=== PATIENT | female | born 1950 | race Caucasian/White ===

== ENCOUNTER 2025-01-24 09:00 | Outpatient (REF) | payer MEDICARE, SELFPAY ==
--- NOTE | ~2025-01-24 | MR_ITS ---
EXAM: TECHNIQUE: Multiplanar - multisequence imaging through an upper extremity, right hand , was performed without and with IV contrast. IV contrast: 7.5 mL Gadavist INDICATION: Painless mass or swelling of the wrist for a couple months , prior history of ganglion that was surgically provided, partially amputated thumb 4 years ago PRIOR: None FINDINGS: Ligaments: Collateral ligaments appear intact. Muscles, tendons, pulleys: There is fluid encircling the flexor tendons through the carpal tunnel with mild thickening and hyperenhancement of the synovium. Hyperenhancement of the synovium continues along the flexor tendons of the fifth digit and through the thenar region of the flexor tendon of the thumb. There is a multiloculated fluid collection involving the thumb. Fluid collection tracks along the lateral/radial side of flexor tendon and proximal phalanx. At the level of the IP joint, fluid encircles the flexor pollicis longus tendon with the tendon is severely attenuated. There is peripheral hyperenhancement collection that measures 2.4 x 1.0 x 0.6 cm (CC by transverse by AP). There is also a loculated collection with thick peripheral enhancement on the palmar side of the distal phalanx measuring 7 mm diameter. The lesion is isointense slightly hyperintense to skeletal muscle T1 imaging, intermediate signal on fluid sensitive sequences, and demonstrates thick peripheral enhancement. Muscles demonstrate no edema, or mass effect, or fatty changes. Articular cartilage: There is moderate to severe thinning of articular cartilage and IP joint of thumb with large marginal osteophytes. There is trace joint effusion of the first MCP joint Bones/Marrow: There is no marrow edema or marrow replacing lesions. MR/MR hand RT wo/w con IMPRESSION: There is evidence of a tenosynovitis involving the flexor tendons in the carpal tunnel with extension into the first and fifth rays. This could be related to an inflammatory arthropathy such as rheumatoid arthritis, but could be posttraumatic or related to overuse. Infection is less likely given the 4 month duration without aggressive features such as extension through fascial planes or erosions. There is likely formation of a synovial cyst in the thumb, as described above. The most distal lesion in the thumb demonstrates nodular thickening but is still likely synovial in nature. 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 Electronically signed by: Rd Duarte MD 01/24/2025 12:21 PM EDT RP
--- OUTSIDE RECORDS SUMMARY | 2025-01-24 09:42 | XMS_ITS | Encounter Summary ---
Author Organization [facility] Address [address] [facility] [address] [place] [address] Phone Care Team Providers Care Acoustical Installer Name Role Phone Lisa Loco DO Primary Care Provider [phone] Sky Barrett MD Primary Care Provider [phone]- [phone] Trent Salazar MD Unavailable [phone] Encounter Details Date Type Department Care Team (Late st Contact Info) Description 06/14/2018 Prep for Surgery [facility] Orthopedics & Sports Medicine [address] [place] [address] Lorena Denis MD [address] [place] [address] Orthopedics & Sports Medicine, [facility] [address] [email or web address] Social History Tobacco Use Types Packs/Day Years Used Date Smoking Tobacco: Former Cigarettes Q uit: 1979 Smokeless Tobacco: Never Alcohol Use Standard Drinks/Week Comments Yes 0 (1 standard drink = 0.6 oz pur e alcohol) rare Comments No Sex and Gender Information Value Date Recorded Sex Assigned at Female 04/03/2017 9:38 AM EST Legal Sex Female 10:00 PM EDT Gender Identity Female 04/03/2017 9:38 AM EST Sexual Orientation Straight 04/03/2017 9: 38 AM EST documented as of this encounter Plan of Treatment Upcoming Encounters Date Type Department Care Team (Late st Contact Info) Description 01/07/2025 Procedure Pass [address] [address] 01/28/2025 8:30 AM EST Office Visit [facility] Orthopedics & Sports [address] [address] Lorena Denis MD [address] [place] [address] Orthopedics Sports [facility], [place], [place] [id number] 02/12/2025 6:10 PM EST Appointment [facility] [address] [place] [address] Haley Castellanos PA-C [address] [place] [address] [place] [address] 03/13/2025 10:15 AM EST Office Visit [facility] Orthopedics & Sports [address] [address] Lorena Denis MD [address] [place], [place] [address] [place], [place] [phone] [email or web address] documented as of this encounter Visit Diagnoses Not on filedocumented in this encounter Care Teams Acoustical Installer Relationship Specialty Start Date End Date Lisa Loco DO [address] [place] [address] [email or web address] PCP - General 03/30/18 07/30/20 Sky Barrett MD [address] [place] [address], [address] [place] [address] PCP - General Internal Medicine 07/31/20 Trent Salazar MD [address] [place] [address] ([email or web address]) [email or web address] Gastroenterology 07/19/22 documented as of this encounter Additional Source Comments The information contained in this document represents components of the legal health record. It is not the complete legal health record.[facility]
--- OUTSIDE RECORDS SUMMARY | 2025-01-24 09:42 | XMS_ITS | Clinical Summary ---
Author Organization [facility] Address [address] [place] [address] Care Team Providers Care Business Process Associate Name Role Phone Lisa Loco DO Primary Care Provider [phone] Allergies No known active allergies Medications acetaminophen (TYLENOL) 325 mg tablet Take 1 tablet (325 mg total) by mouth every 6 hours. 02/04/2020 Active aspirin 81 mg EC tablet Take 1 tablet (81 mg total) by mouth daily. 30 tablet 02/04/2020 Active docusate sodium (COLACE) 100 mg capsule Take 1 capsule (100 mg total) by mouth 2 times a day. 02/04/2020 Active oxyCODONE IR (ROXICODONE) 5 mg tablet Take 1 tablet (5 mg total) by mouth every 3 hours as needed for pain. Max Daily Amount: 40 mg 12 tablet 02/04/2020 Active polyethylene glycol 3350 (MIRALAX) 17 gram packet Take 1 packet (17 g total) by mouth daily as needed (Constipatio n). Mix powder in 4 to 8 oz of water, juice, coffee, or tea. 02/04/2020 Active senna (SENOKOT) 8.6 mg tablet Take 2 tablets (17.2 mg total) by mouth nightly. 02/04/2020 Active Active Problems Problem Noted Date Diagnosed Date Thumb laceration, right, initial encounter 01/28 Social History Tobacco Use Types Packs/Day Years Used Date Smoking Tobacco: Never Smokeless Tobacco: Never Tobacco Cessation:Counseling Given: No Alcohol Use Standard Drinks/Week Comments Yes 0 (1 standard drink = 0.6 oz pur e alcohol) Comments No Sex and Gender Information Value Date Recorded Sex Assigned at Not on file Legal Sex Female 2:53 PM EST Gender Identity Not on file Sexual Orientation Not on file Last Filed Vital Signs Vital Sign Reading Time Taken Comments Blood Pressure 156/70 02/03/2020 8:00 PM EST Pulse 90 02/03/2020 8:00 PM EST Temperature 36.8 C (98.2 F) 02/03/2020 7:00 PM EST Respiratory Rate 18 02/03/2020 8:00 PM EST Oxygen Saturation 96% 02/03/2020 8:00 PM EST Inhaled Oxygen Concentration - - Weight 78.7 kg (173 lb 8 oz) 01/29/2020 7:00 PM EST Height 157.5 cm (5' 2 ) 01/29/2020 7:00 PM EST Body Mass Index 31.73 01/29/2020 7:00 PM EST Plan of Treatment Health Maintenance Due Date Last Done Comments Cologuard 1951 Colon Cancer Screening 1950 Colonoscopy 1951 FOBT / Fit Test 1951 Sigmoidoscopy 1951 Osteoporosis Screening 2001 Zoster Vaccines (2 of 3) 04/29/2014 03/04/2014 Mammogram 05/08/2022 05/08/2020 Alcohol/Substance Use Screening 03/27/2024 Health Care Proxy Review 03/27/2024 COVID-19 Vaccine (1 - 2024-2 6 season) 2024 Influenza Vaccine (#1) 2024 12/29/2019 RSV Vaccine (60+ years old a nd patients) (1 - 1-dose 75+ series) 2026 DTaP,Tdap,and Td Vaccines (4 - Td or Tdap) 02/03/2029 02/03/2019, 01/01/2015, 01/24/2013 Pneumococcal Vaccine: 50+ Years Completed 02/03/2019, 01/09/2018 Hepatitis B Vaccines Aged Out No long er eligible based on patient's age to complete this topic Medical Devices Implanted Type Area Track Layer Device Identifier Shelf Expiration Date Model / Serial / Lot Graft Nerve 2-3mm X 30mm - [id number] Implanted:Qty: 1 on 02/03/2020 by Makenzie Luna MD at [facility] Tissue Right: Thumb [place] 10/02/2022 [id number] / / [id number] C-Wire Garcia 0.035in - [id number] Implanted:Qty: 2 on 02/03/2020 by Makenzie Luna MD at [facility] Wire [facility] LINVATE [id number] / / Insurance BCBS MCR REPLACE PPO Advance Directives Documents on File Type Date Recorded 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
--- OUTSIDE RECORDS SUMMARY | 2025-01-24 09:42 | XMS_ITS | Encounter Summary ---
Author Organization [facility] Address [address] [employer] [facility] [address] [place] [address] Phone Care Team Providers Care Sheet Metal Foreman Name Role Phone Sky Barrett MD Primary Care Provider [phone]- [phone] Trent Salazar MD Unavailable [phone] Encounter Details Date Type Department Care Team (Late st Contact Info) Description 10/21/2022 Prep for Surgery [facility] Orthopedics & Sports Medicine [address] [place] [address] Lorena Denis MD [address] [place] [address] Orthopedics & Sports Medicine, [facility] [place] [address] [email or web address] Social History Tobacco Use Types Packs/Day Years Used Date Smoking Tobacco: Former Cigarettes Q uit: 1979 Smokeless Tobacco: Never Alcohol Use Standard Drinks/Week Comments Yes 1 (1 standard drink = 0.6 oz pur e alcohol) Education Answer Date Recorded Are you interested in more education? Not on ismael e 07/22/2022 Are you concerned about learning? Not on file 07/22/2022 No 07/22/2022 No 07/22/2022 Digital Access Answer Date Recorded No 08/19/2022 No 08/19/2022 Reliable internet access at home? Not on file 08/19/2022 Device with a working camera? 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 on file Not on file documented as of this encounter Plan of Treatment Upcoming Encounters Date Type Department Care Team (Late st Contact Info) Description 01/07/2025 Procedure Pass [address] [address] 01/28/2025 8:30 AM EST Office Visit [facility] Orthopedics & Sports Medicine [address] [place] [address] Lorena Denis MD [address] [place], [place] [address]s Sports [facility], [place] [address] 02/12/2025 6:10 PM EST Appointment [address] [address] Haley Castellanos PA-C [address] [place] [address] Sports [facility], [place] [address] 03/13/2025 10:15 AM EST Office Visit [facility] Orthopedics & Sports [address] [address] Lorena Denis MD [address] [place] [address] Orthopedics Sports [facility], [place] [address] documented as of this encounter Visit Diagnoses Not on filedocumented in this encounter Care Teams Sheet Metal Foreman Relationship Specialty Start Date End Date Sky Barrett MD [address] [place] [address], [address] [place] [address] PCP - General Internal Medicine 07/31/20 Trent Salazar MD [address] [place] [address] [email or web address] Gastroenterology 07/19/22 documented as of this encounter Additional Source Comments The information contained in this document represents components of the legal health record. It is not the complete legal health record.[facility]
--- OUTSIDE RECORDS SUMMARY | 2025-01-24 09:42 | XMS_ITS | Encounter Summary ---
Author Organization [facility] Address [address] [facility] [address] [place] [address] Phone Care Team Providers Care Machine Helper Name Role Phone Bryn Farfan MD Primary Care Provide r Lisa Loco DO Primary Care Provider [phone] Sky Barrett MD Primary Care Provider [phone] Trent Salazar MD Unavailable [phone] Encounter Details Date Type Department Care Team (Late st Contact Info) Description 01/17/2018 Ancillary Orders [facility] Department [address] [place] [address] Malena Bentley, RN SECURITY [address] [place] [address] Breast screening Social History Tobacco Use Types Packs/Day Years Used Date Smoking Tobacco: Never Smokeless Tobacco: Never Alcohol Use Standard Drinks/Week [...] st Contact Info) Description 01/07/2025 Procedure Pass [facility], [facility] - [address] [address] 01/28/2025 8:30 AM EST Office Visit [facility] Orthopedics & Sports Medicine [address] [place] [address] Lornea Denis MD [address] [place] [address] Orthopedics Sports [facility], [place] [address] 02/12/2025 6:10 PM EST Appointment [address] [address] Haley Castellanos PA-C [address] [place] [address] Sports [facility], [place] [address] [email or web address] 03/13/2025 10:15 AM EST Office Visit [facility] Orthopedics & Sports [address] [address] Lorena Denis MD [address] [place] [address] Orthopedics Sports [facility], [place] [address] [email or web address] documented as of this encounter Results * BI MAMMOGRAM SCREENING WITH TOMOSYNTHESIS WITH CAD (BILATERAL) (04/25/2018 8:18 AM EST) Anatomical Region Laterality Modality Breast Left, Breast Right, Breast Bilateral Bila teral Mammography 04/25/2018 8:58 AM EST Impressions 04/25/2018 9:00 AM EST No findings suspicious for malignancy are identified. In the absence of a worrisome palpable abnormality, annual screening mammography is recommended. BI-RADS CATEGORY: 1 - Negative. DENSITY: There are scattered fibroglandular densities. POS [id number] Narrative 04/25/2018 9:00 AM EST COMPARISON: 08/25/2010 through 12/06/2016 Bilateral 3-D tomosynthesis with 2-D reconstructions in the CC and MLO projection. Computer-aided detection system also utilized. No new mass, asymmetry, architectural distortion or suspicious calcifications have become apparent on either side. Procedure Note Jc Young MD - 04/25/2018 COMPARISON: 08/25/2010 through 12/06/2016 Bilateral 3-D tomosynthesis with 2-D reconstructions in the CC and MLOprojection. Computer-aided detection system also utilized. No new mass, asymmetry, architectural distortion or suspiciouscalcifications have become apparent on either side. IMPRESSION: No findings suspicious for malignancy are identified. In the absence of aworrisome palpable abnormality, annual screening mammography isrecommended. BI-RADS CATEGORY: 1 - Negative. DENSITY: There are scattered fibroglandular densities. POS [id number] us Malena Bentley RN SECURITY IMG MG EXAMS Final Resul t documented in this encounter Visit Diagnoses Diagnosis Breast screening Breast screening, unspecified Breast screening Breast screening, unspecified documented in this encounter Care Teams Machine Helper Relationship Specialty Start Date End Date Bryn Farfan MD [email or web address] PCP - General 01/12/17 Lisa Loco DO [address] [place] [address] PCP - General 03/30/18 07/30/20 Sky Barrett MD [address] [place] [address], [address] [place] [address] [email or web address] PCP - General Internal Medicine 07/31/20 Trent Salazar MD [address] [place] [address] Gastroenterology 07/19/22 documented as of this encounter Additional Source Comments The information contained in this document represents components of the legal health record. It is not the complete legal health record.[facility]
--- OUTSIDE RECORDS SUMMARY | 2025-01-24 09:42 | XMS_ITS | Encounter Summary ---
Author Organization [facility] Address [address] [facility] [address] [place] [address] Phone Care Team Providers Care Engineering Technical Specialist Name Role Phone Sky Barrett MD Primary Care Provider [phone] Trent Salazar MD Unavailable [phone] Encounter Details Date Type Department Care Team (Late Contact Info) Description 10/02/2020 Procedure Pass [facility] Endoscopy Admitting Dept Virtual Department [address] [place] [address] Social History Tobacco Use Types Packs/Day Years Used Date Smoking Tobacco: Former Cigarettes Q uit: 1979 Smokeless Tobacco: Never Alcohol Use Standard Drinks/Week Comments Yes 0 (1 standard drink = 0.6 oz pur e alcohol) Rarely Comments No Sex and Gender Information Value Date Recorded Sex Assigned at Female 04/03/2017 9:38 AM EST Legal Sex Female 10:00 PM EDT Gender Identity Female 04/03/2017 9:38 AM EST Sexual Orientation Straight 04/03/2017 9: 38 AM EST documented as of this encounter Plan of Treatment Upcoming Encounters Date Type Department Care Team (Late Contact Info) Description 01/07/2025 Procedure Pass [address] [address] 01/28/2025 8:30 AM EST Office Visit [facility] Orthopedics & Sports Medicine [address] [place] [address] Lorena Denis MD [address] [place] [address] Orthopedics & Sports Medicine, [facility] [place] [address] 02/12/2025 6:10 PM EST Appointment [facility], [facility] [address] [place] [address] Haley Castellanos PA-C [address] [place] [address] Orthopedics & Sports [facility], [place] [address] 03/13/2025 10:15 AM EST Office Visit [facility] Orthopedics & Sports Medicine [address] [place] [address] Lorena Denis MD [address] [place] [address] Orthopedics Sports [facility], [place], [place] [address] documented as of this encounter Visit Diagnoses Not on filedocumented in this encounter Care Teams Engineering Technical Specialist Relationship Specialty Start Date End Date Sky Barrett MD [address] [place] [address], [address] [place] [address] PCP - General Internal Medicine 07/31/20 Trent Salazar MD [address] [place] [address] Gastroenterology 07/19/22 documented as of this encounter Additional Source Comments The information contained in this document represents components of the legal health record. It is not the complete legal health record.[facility]
--- OUTSIDE RECORDS SUMMARY | 2025-01-24 09:42 | XMS_ITS | Encounter Summary ---
Author Organization [facility] Address [address] [place] [address] [place] [address] Phone Care Team Providers Care Buggy Operator Name Role Phone Lisa Loco DO Primary Care Provider [phone]- [phone] Sky Barrett MD Primary Care Provider [phone] Trent Salazar MD Unavailable [phone] Encounter Details Date Type Department Care Team (Late st Contact Info) Description 06/15/2018 Procedure Pass [place] Admitting Dept - [facility] Department [address] [place] [address] Social History Tobacco Use Types Packs/Day Years [...] (Late Contact Info) Description 01/07/2025 Procedure Pass [facility], [address] [address] 01/28/2025 8:30 AM EST Office Visit [facility] Orthopedics & Sports Medicine [address] [place] [address] Lorena Denis MD [address] [place] [address] Orthopedics & Sports [facility], [place] [address] 02/12/2025 6:10 PM EST Appointment [facility], [facility] - [address] [address] Haley Castellanos PA-C [address] [place] [address] [place] [address] 03/13/2025 10:15 AM EST Office Visit [facility] Orthopedics & Sports [address] [address] Lorena Denis MD [address] [place] [address] [place], [place] [address] documented as of this encounter Visit Diagnoses Not on filedocumented in this encounter Care Teams Buggy Operator Relationship Specialty Start Date End Date Lisa Loco DO [address] [place] [address] [email or web address] PCP - General 03/30/18 07/30/20 Sky Barrett MD [address] [place] [address] [address] [place] [address] PCP - General Internal Medicine 07/31/20 Trent Salazar MD [address] [place] [address] Gastroenterology 07/19/22 documented as of this encounter Additional Source Comments The information contained in this document represents components of the legal health record. It is not the complete legal health record.[facility]
--- OUTSIDE RECORDS SUMMARY | 2025-01-24 09:42 | XMS_ITS | Encounter Summary ---
Author Organization [facility] Address [address] [place] [address] Phone Care Team Providers Care Coach Operator Name Role Phone Sky Barrett MD Primary Care Provider [phone]- [phone] Trent Salazar MD Unavailable [phone] Encounter Details Date Type Department Care Team (Late st Contact Info) Description 12/15/2022 Procedure Pass [facility] Endoscopy Admitting Dept Virtual Department [address] [place] [address] Social History Tobacco Use Types Packs/Day Years [...] st Contact Info) Description 01/07/2025 Procedure Pass [address] [address] 01/28/2025 8:30 AM EST Office Visit [facility] Orthopedics & Sports [address] [address] Lorena Denis MD [address] [place], [place] [address]s Sports [facility], [place] [address] 02/12/2025 6:10 PM EST Appointment [address] [address] Haley Castellanos PA-C [address] [place] [address], [place] [address] 03/13/2025 10:15 AM EST Office Visit [facility] Orthopedics & Sports [address] [address] Lorena Denis MD [address] [place], [place] [address]s [facility], [place], [place] [phone] documented as of this encounter Visit Diagnoses Not on filedocumented in this encounter Care Teams Coach Operator Relationship Specialty Start Date End Date Sky Barrett MD [address] [place] [address], [address] [place] [address] PCP - General Internal Medicine 07/31/20 Trent Salazar MD [address] [place] [address] Gastroenterology 07/19/22 documented as of this encounter Additional Source Comments The information contained in this document represents components of the legal health record. It is not the complete legal health record[facility]
--- OUTSIDE RECORDS SUMMARY | 2025-01-24 09:42 | XMS_ITS | Encounter Summary ---
Author Organization [facility] Address [address] [facility] [address] [place] [address] Phone Care Team Providers Care Production Control Analyst Name Role Phone Lisa Loco DO Primary Care Provider [phone] Sky Barrett MD Primary Care Provider [phone]- [phone] Trent Salazar MD Unavailable [phone] Encounter Details Date Type Department Care Team (Late st Contact Info) Description 03/12/2019 Ancillary Orders [facility] [address] [place] [address] Lisa Loco DO [address] [place] [address] [email or web address] Breast screening Social History Tobacco Use Types [...] st Contact Info) Description 01/07/2025 Procedure Pass [facility], [facility] [address] [place] [address] 01/28/2025 8:30 AM EST Office Visit [facility] Orthopedics & Sports Medicine [address] [place] [address] Lorena Denis MD [address] [place], [place] [address]s Sports [facility], [place] [address] 02/12/2025 6:10 PM EST Appointment [address] [address] Haley Castellanos PA-C [address] [place] [address] Sports [facility], [place] [address] [email or web address] 03/13/2025 10:15 AM EST Office Visit [facility] Orthopedics & Sports [address] [address] Lorena Denis MD [address] [place] [address] Orthopedics Sports [facility], [place], [place] [id number] [email or web address] documented as of this encounter Results * BI MAMMOGRAM SCREENING WITH TOMOSYNTHESIS WITH CAD (BILATERAL) (04/26/2019 9:13 AM EST) Anatomical Region Laterality Modality Breast Left, Breast Right, Breast Bilateral Bila teral Mammography 04/26/2019 10:0 2 AM EST Impressions 04/26/2019 10:04 AM EST No mammographic change indicative of malignancy. Routine screening is recommended. BI-RADS CATEGORY: 1 - Negative. DENSITY: There are scattered fibroglandular densities. POS -CDHMAMA Narrative 04/26/2019 10:04 AM EST Bilateral full-field digital screening mammography is obtained and read in conjunction with computer-aided detection. Tomosynthesis as well as 2-D C view imaging of both breasts in two planes also obtained. Comparison made to multiple prior, most recent April 25, 2018, and most remote June 06, 2012. No dominant mass, architectural distortion, worrisome asymmetry, or suspicious calcification is identified. No skin or nipple finding of concern is appreciated. Procedure Note Trino Castellanos MD - 04/26/2019 Bilateral full-field digital screening mammography is obtained and read inconjunction with computer-aided detection. Tomosynthesis as well as 2-D Cview imaging of both breasts in two planes also obtained. Comparison madeto multiple prior, most recent April 25, 2018, and most remote May. No dominant mass, architectural distortion, worrisome asymmetry, orsuspicious calcification is identified. No skin or nipple finding ofconcern is appreciated. IMPRESSION: No mammographic change indicative of malignancy. Routine screening isrecommended. BI-RADS CATEGORY: 1 - Negative. DENSITY: There are scattered fibroglandular densities. POS -CDHMAMA Lisa Loco DO IMG MG EXAMS Final Resu lt documented in this encounter Visit Diagnoses Diagnosis Breast screening Breast screening, unspecified Breast screening Breast screening, unspecified documented in this encounter Care Teams Production Control Analyst Relationship Specialty Start Date End Date Lisa Loco DO [address] [place] [id number] [email or web address] PCP - General 03/30/18 07/30/20 Sky Barrett MD [address] [place] [address], [address] [place] [address] [email or web address] PCP - General Internal Medicine 07/31/20 Trent Salazar MD [address] [place] [address] Gastroenterology 07/19/22 documented as of this encounter Additional Source Comments The information contained in this document represents components of the legal health record. It is not the complete legal health record.[facility]
--- OUTSIDE RECORDS SUMMARY | 2025-01-24 09:42 | XMS_ITS | Encounter Summary ---
Author Organization [facility] Address [address] [place] [address] Phone Care Team Providers Care Thread Machine Operator Name Role Phone Lisa Loco DO Primary Care Provider [phone] Sky Barrett MD Primary Care Provider [phone]- [phone] Trent Salazar MD Unavailable [phone] Encounter Details Date Type Department Care Team (Late st Contact Info) Description 04/14/2020 Transcribe Orders Virtual Department [address] [place] [address] Lisa Lcoo, DO [address] [place] [address] [email or web address] Breast screening (Primary Dx) Social History Tobacco Use Types Packs/Day Years [...] st Contact Info) Description 01/07/2025 Procedure Pass [facility], [facility] [address] [place] [address] 01/28/2025 8:30 AM EST Office Visit [facility] Orthopedics & Sports Medicine [address] [place] [address] Lorena Denis MD [address] [place], [place] [address]s [facility], [place] [address] 02/12/2025 6:10 PM EST Appointment [address] [address] Haley Castellanos PA-C [address] [place] [address] [facility] [place] [address] [email or web address] 03/13/2025 10:15 AM EST Office Visit [facility] Orthopedics & Sports [address] [address] Lorena Denis MD [address] [place] [address] Orthopedics [facility], [place] [address] [email or web address] documented as of this encounter Results * BI MAMMOGRAM SCREENING WITH TOMOSYNTHESIS WITH CAD (BILATERAL) (05/08/2020 9:52 AM EST) Anatomical Region Laterality Modality Breast Left, Breast Right, Breast Bilateral Bila teral Mammography 05/08/2020 10:2 4 AM EST Impressions 05/08/2020 10:28 AM EST No findings suspicious for malignancy are identified. In the absence of a worrisome palpable abnormality, annual screening mammography is recommended. BI-RADS CATEGORY: 1 - Negative. DENSITY: There are scattered fibroglandular densities. Narrative 05/08/2020 10:28 AM EST COMPARISON: 09/05/2013 through 04/26/2019 Bilateral 3-D tomosynthesis with 2-D reconstructions in the CC and MLO projection. Computer-aided detection system also utilized. No new mass, asymmetry, architectural distortion or suspicious calcifications have become apparent on either side. Procedure Note Douglas Young MD - 05/08/2020 COMPARISON: 09/05/2013 through 04/26/2019 Bilateral 3-D tomosynthesis with 2-D reconstructions in the CC and MLOprojection. Computer-aided detection system also utilized. No new mass, asymmetry, architectural distortion or suspiciouscalcifications have become apparent on either side. IMPRESSION: No findings suspicious for malignancy are identified. In the absence of aworrisome palpable abnormality, annual screening mammography isrecommended. BI-RADS CATEGORY: 1 - Negative. DENSITY: There are scattered fibroglandular densities. Lisa Loco DO IMG MG EXAMS Final Resu lt documented in this encounter Visit Diagnoses Diagnosis Breast screening- Primary Breast screening, unspecified Breast screening Breast screening, unspecified documented in this encounter Care Teams Thread Machine Operator Relationship Specialty Start Date End Date Lisa Loco DO [address] [place] [address] [email or web address] PCP - General 03/30/18 07/30/20 Sky Barrett MD [address] [facility], [address] [place] [address] PCP - General Internal Medicine 07/31/20 Trent Salazar MD [address] [address] Gastroenterology 07/19/22 documented as of this encounter Additional Source Comments The information contained in this document represents components of the legal health record. It is not the complete legal health record.[facility]
--- OUTSIDE RECORDS SUMMARY | 2025-01-24 09:42 | XMS_ITS | Encounter Summary ---
Author Organization [facility] Address [address] [place] [address] Phone Care Team Providers Care Online Program Coordinator Name Role Phone Sky Barrett MD Primary Care Provider [phone]- [phone] Trent Salazar MD Unavailable [phone] Encounter Details Date Type Department Care Team (Late st Contact Info) Description 10/26/2022 Procedure Pass OR Admitting Dept - Virtual Department [address] [place] [address] Social History Tobacco Use Types Packs/Day Years [...] st Contact Info) Description 01/07/2025 Procedure Pass [address] [address] 01/28/2025 8:30 AM EST Office Visit [facility] Orthopedics & Sports [address] [address] Lorena Denis MD [address] [place], [place] [address]s Sports [facility], [place] [address] 02/12/2025 6:10 PM EST Appointment [address] [address] Haley Castellanos PA-C [address] [place] [address], [place] [address] 03/13/2025 10:15 AM EST Office Visit [facility] Orthopedics & Sports [address] [address] Lorena Denis MD [address] [place], [place] [address] [facility], [place], [place] [id number] documented as of this encounter Visit Diagnoses Not on filedocumented in this encounter Care Teams Online Program Coordinator Relationship Specialty Start Date End Date Sky Barrett MD [address] [place] [address], [address] [place] [address] PCP - General Internal Medicine 07/31/20 Trent Salazar MD [address] [place] [address] Gastroenterology 07/19/22 documented as of this encounter Additional Source Comments The information contained in this document represents components of the legal health record. It is not the complete legal health record.[facility]
--- OUTSIDE RECORDS SUMMARY | 2025-01-24 09:42 | XMS_ITS | Encounter Summary ---
Author Organization [facility] Address [address] [place] [address] Phone Care Team Providers Care Sterile Processing Technician Name Role Phone Lisa Loco DO Primary Care Provider [phone]- [phone] Sky Barrett MD Primary Care Provider [phone]- [phone] Trent Salazar MD Unavailable [phone] Encounter Details Date Type Department Care Team (Late Contact Info) Description 04/14/2020 Procedure Pass [address] [address] Social History Tobacco Use Types Packs/Day Years [...] (Late st Contact Info) Description 01/07/[address] [address] 01/28/2025 8:30 AM EST Office Visit [facility] Medical [facility] Orthopedics & Sports Medicine [address] [place] [address] Lorena Denis MD [address] [facility] Orthopedics & Sports [facility], [place], [place] [address] 02/12/2025 6:10 PM EST Appointment [facility], [facility] 30 [place] [address] Haley Castellanos PA-C [address] [place] [address] [facility] [place] [address] 03/13/2025 10:15 AM EST Office Visit [facility] Orthopedics & Sports [address] [address] Lorena Denis MD [address] [place] [address] [place], [place] [address]88 documented as of this encounter Visit Diagnoses Not on filedocumented in this encounter Care Teams Sterile Processing Technician Relationship Specialty Start Date End Date Lisa Loco DO [address] [place] [address] [email or web address] PCP - General 03/30/18 07/30/20 Sky Barrett MD [address] [place] [address] [address] [place] [address] PCP - General Internal Medicine 07/31/20 Trent Salazar MD [address] [place] [address] Gastroenterology 07/19/22 documented as of this encounter Additional Source Comments The information contained in this document represents components of the legal health record. It is not the complete legal health record.[facility]
--- OUTSIDE RECORDS SUMMARY | 2025-01-24 09:42 | XMS_ITS | Encounter Summary ---
Author Organization [facility] Address [address] [place] [address] [place] [address] Phone Care Team Providers Care Election Clerk Name Role Phone Sky Barrett MD Primary Care Provider [phone]- [phone] Trent Salazar MD Unavailable [phone] Encounter Details Date Type Department Care Team (Late st Contact Info) Description 04/19/2022 Procedure Pass [address] [address] Social History Tobacco Use Types Packs/Day Years Used Date Smoking Tobacco: Former Cigarettes Q uit: 1979 Smokeless Tobacco: Never Alcohol Use Standard Drinks/Week Comments Not Currently 0 (1 standard drink = 0.6 oz [...] st Contact Info) Description 01/07/2025 Procedure Pass [address] [address] 01/28/2025 8:30 AM EST Office Visit [facility] Medical [facility] Orthopedics & Sports Medicine [address] [place] [address] Lorena Denis MD [address] [place] [address] Orthopedics & Sports Medicine, [facility] [place] [address] 02/12/2025 6:10 PM EST Appointment [facility], [facility] [address] [place] [address] Haley Castellanos PA-C [address] [place] [address] Orthopedics & Sports [facility], [place] [address] 03/13/2025 10:15 AM EST Office Visit [facility] Orthopedics & Sports Medicine [address] [place] [address] Lorena Denis MD [address] [place] [address] Orthopedics Sports [facility], [place], [place] [address] documented as of this encounter Visit Diagnoses Not on filedocumented in this encounter Care Teams Election Clerk Relationship Specialty Start Date End Date Sky Barrett MD [address] [place] [address], [address] [place] [address] PCP - General Internal Medicine 07/31/20 Trent Salazar MD [address] [place] [address] Gastroenterology 07/19/22 documented as of this encounter Additional Source Comments The information contained in this document represents components of the legal health record. It is not the complete legal health record.[facility]
--- OUTSIDE RECORDS SUMMARY | 2025-01-24 09:42 | XMS_ITS | Clinical Summary ---
Author Organization Formerly [facility] Address [address] [facility] [address] [place] [phone] Phone Care Team Providers Care Whiskey Proof Reader Name Role Phone Sky Barrett MD Primary Care Provider [phone] Karolina Salazar MD Unavailable [phone] Allergies No known active allergies Medications ibuprofen (ADVIL,MOTRIN) 200 MG tablet Take 200 mg by mouth every 6 (six) hours as needed for pain (specific location in comments). Active estradioL (ESTRACE) 0.01 % (0.1 mg/gram) vaginal cream Place 2 grams vaginally twice weekly. 42.5 g 3 4 Active clobetasol (TEMOVATE) 0.05 % ointmentIndicat ions:Lichen sclerosus,Vagin al dryness, menopausal APPLY TOPICALLY TO THE AFFECTED AREA 1 TIME A WEEK 30 g 3 4 Active Additional Information Patient not taking.Reported on 10/09/2023 Active Problems Problem Noted Date Diagnosed Date Nocturnal leg cramps 09/05/2022 Assessment & Plan (09/05/2022 5:11 PM EDT): Recommend she discontinue magnesium supplement and I showed her how to do some stretching exercises at her usually helpful. I also recommend some warm up exercises before retiring at night. Unless her symptoms worsen, no other interventions needed. If she has persistent symptoms after a few weeks of exercises, I recommend having some labs drawn to make sure we do not see any metabolic abnormality. Menopause 07/19/2022 Assessment & Plan (07/19/2022 10:20 AM EDT): Check bone density, if normal no intervention needed. History of colonic polyps 07/19/2022 Assessment & Plan (07/20/2023 10:32 AM EDT): Readings up-to-date, due for recheck in 4 years. Assessment & Plan (07/19/2022 10:19 AM EDT): Follow-up as planned with gastroenterology for colonoscopy later this year Gastroesophageal reflux disease without esophagi tis 07/19/2022 Assessment & Plan (07/19/2022 10:21 AM EDT): Symptoms have resolved with weight loss. Chest pain was likely due to esophageal spasm. As long as symptoms do not recur and she is feeling well, no further evaluation or treatment are needed. Lichen sclerosus 05/08/2019 Overview (05/08/2019): Based on clinical appearance and sxs of some itching Assessment & Plan (02/01/2021 12:59 PM EST): Kacey will continue with weekly Clobetasol. We discussed benefits for sx control and prevention of progression of LS of resuming estradiol cream. She was considering this solely for relief of vaginal dryness and will do so. Usage reviewed and rx sent. Follow up in one year. Assessment & Plan (06/06/2019 9:06 PM EDT): Doing well, appearance and sxs improved; recommend taper to once weekly, avoid irritants, can use BID prn flares Exams at least once a year to check Assessment & Plan (05/08/2019 5:15 PM EST): Discussed pros and cons of bx, I do not think necessary; discussed LS dx, care of vulva and role of clobetasol, start BID, taper to once weekly and f/u in office 4-6 weeks Familial multiple polyposis syndrome 04/09/2019 Vaginal dryness, menopausal 04/23/2018 Assessment & Plan (02/01/2021 12:58 PM EST): Kacey will resume estradiol cream, both for relief of vaginal dryness/discomfort and as adjunct therapy for LS. Usage reviewed and rx sent. Assessment & Plan (04/29/2019 9:48 AM EST): Kacey will continue with Estrace cream. She may apply externally as well. In addition, she will have consult with Dr. Shaw re: vulvar/labial hypopigmentation. Assessment & Plan (04/23/2018 3:06 PM EST): Kacey will continue with Estrace cream. She has refills for now and will call if she needs them, through 03/2019. Ganglion cyst of volar aspect of right wrist Mass of skin of right thumb Resolved Problems Problem Noted Date Diagnosed Date Resolved Date Encounter for gynecological examination without abnormal finding 03/31/2023 07/20/2023 Acute swimmer's ear of right side 05/18/2021 07/19/2022 Skin hypopigmentation 04/29/20192023 Overview (04/29/2019): Introital/labial hypogmentation noted at annual visit 04/29/19. Reviewed possible reasons and need for MD consult/possible bx as precaution. Hypothyroidism 04/09/2019 07/19/2022 Hematochezia 08/10/2018 07/19/2022 Assessment & Plan (08/10/2018 10:14 AM EDT): Small erosion of the skin is likely the cause of hematochezia. Recommend that she use a lubricant such as petroleum jelly or zinc oxide ointment and is to be very careful when cleaning herself. This should resolve on its own in the next few days. If it does not she will let us know. Encounters Date Type Department Care Team Description 01/07/2025 11:00 AM EDT Office Visit [facility] Orthopedics & Sports Medicine [address] [place] [address] Konefal, Neena, PA-C Mass of right hand (Primary Dx); Right hand pain from Last 3 Months Immunizations Immunization Administration Dates Next Due COVID-19 (Pre) Pfizer Vaccine, mRNA, PF 01/08/2021,06/12/2020,05/18/2020 COVID-19 (Pre-01/16) Pfizer Vaccine, mRNA, yves-sucrose, PF 07/19/2021 Influenza High-Dose Quadriva lent Preservative Free IM 01/17/2022 Influenza High-Dose Trivalen t Preservative Free IM 01/09/2018,12/08/2016 Influenza Quadrivalent Adjuv anted Preservative Free IM 12/04/2020 Influenza Quadrivalent Preservative Free IM 06/2019 Influenza Trivalent Adjuvant ed Preservative free IM 12/14/2018 Influenza, Unspecified Formulation 12/29/2019 Pneumococcal conjugate PCV13 01/09/2018 Pneumococcal polysaccharide PPSV23 02/03/2019 Tdap 02/03/2019,01/01/2015,01/24/2013 Zoster live 03/04/2014 Zoster recombinant 09/09/2019,09/05/2019, 020 Family History Medical History Relation Comments Hypertension Daughter Hypertension Father Stroke Father CV disease Mother CV disease Paternal Grandfather Hypertension Paternal Grandfather Relation Status Comments Daughter Alive Father Mother Paternal Grandfather Sister Alive Social History Tobacco Use Types Packs/Day Years Used Date Smoking Tobacco: Former Cigarettes Q uit: 1979 Smokeless Tobacco: Never Tobacco Cessation:Counseling Given: Not Answered Alcohol Use Standard Drinks/Week Comments Yes 1 [...] with a working camera? Not on file Intimate Partner Violence Answer Date R ecorded Denied Basic Needs Not on file 07/13/2023 In the past 12 months have y ou been in a relationship with a person who hurts, threatens, or tries to control you? No 07/13/2023 Worried food would run out Not on file 07/12 In the past 12 months have y ou been in a relationship with a person who hurts, threatens, or tries to control you? 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 Not on file Not on file Last Filed Vital Signs Vital Sign Reading Time Taken Comments Blood Pressure 128/68 07/20/2023 10:06 AM EDT Pulse 84 07/20/2023 10:06 AM EDT Temperature 36.4 C (97.5 F) 07/20/2023 10:06 AM EDT Respiratory Rate 15 12/15/2022 8:15 AM EDT Oxygen Saturation 97% 07/20/2023 10: 06 AM EDT Inhaled Oxygen Concentration - - Weight 73.4 kg (161 lb 12.8 oz) 024 10:06 AM EDT Height 159.4 cm (5' 2.75 ) 07/20/2023 1 0:06 AM EDT Body Mass Index 28.89 07/20/2023 10:06 AM EDT Plan of Treatment Upcoming Encounters Date Type Department Care Team (Late st Contact Info) Description 01/07/2025 Procedure Pass [address] [address] 01/28/2025 8:30 AM EST Office Visit [facility] Orthopedics & Sports Medicine [address] [place] [phone] Lorena Denis MD [address] [place] [address] Orthopedics & Sports Medicine, [facility] [place] [address] 02/12/2025 6:10 PM EST Appointment [address] [address] Haley Castellanos PA-C 4 [facility] [place] [address] 03/13/2025 10:15 AM EST Office Visit [facility] & Sports Medicine [address] [place] [phone] Lorena Denis MD [address] [place] [address] Orthopedics & [place] [address] [email or web address] Health Maintenance Due Date Last Done Comments SMOKING Hx and SMOKELESS TOBACCO SCREENING 1964 HEPATITIS C SCREENING 1969 COLOGUARD 1996 FIT TEST 1996 FOBT 1996 SIGMOIDOSCOPY 1996 VIRTUAL COLONOSCOPY 1996 LIPID PANEL 04/11/2024 04/11/2019 MAMMOGRAM 04/21/2024 04/21/2022, 04/27, 04/26/2019, Additional history exists DEPRESSION SCREENING 07/12/2024 07/13/2023, 04/09/19 COVID-19 VACCINE ( season) 2024 12/05/2023, 06/05/2023, 12/22/2022, Additional history exists COLONOSCOPY 12/15/2024 12/15/2022, 10/02/2020 COLORECTAL CANCER SCREENING 12/15/2024 RSV VACCINE (1 - 1-dose 75+ series) 2026 Adult Td,Tdap Booster 02/03/2029 02/03/2019 , 01/01/2015, 01/24/2013 PNEUMOCOCCAL VACCINES (50+ years) Completed 02/03/2019, 01/09/2018 ZOSTER VACCINES Completed 09/09/2019, 08/25, 04/12/2019, Additional history exists OSTEOPOROSIS SCREENING INITIAL (ONE-TIME) Completed 01/24/2023 INFLUENZA VACCINE Completed 12/16/2024, , 12/22/2022, Additional history exists HEPATITIS A VACCINES Aged Out No long er eligible based on patient's age to complete this topic HIB VACCINES Aged Out No longer eligi ble based on patient's age to complete this topic MENINGOCOCCAL VACCINES (ACWY) Aged Out No longer eligible based on patient's age to complete this topic MENINGOCOCCAL VACCINES (B) Aged Out N o longer eligible based on patient's age to complete this topic Medical Devices Not on file Procedures Procedure Name Priority Date/Time Associated Diagnosis Comments BD DXA AXIAL (SPINE) WITH HIP Routine 01/24/2023 10:00 AM EDT Menopause ENDOSCOPY, COLON 12/15/2022 7:23 AM EDT BI MAMMOGRAM SCREENING WITH TOMOSYNTHESIS WITH CAD (BILATERAL) Routine 04/21/2022 3:08 PM EST Breast screening LIPID PANEL Routine 04/11/2019 7:27 AM EST Screening for cholesterol level from Last 3 Months or Most Recently Relevant to Health Maintenance Results * BD DXA AXIAL (SPINE) WITH HIP (01/24/2023 10:00 AM EDT) Anatomical Region Laterality Modality Bone Density Bone Density 01/24/2023 1:49 PM EDT Impressions 01/24/2023 7:04 PM EDT Osteopenia evident in bilateral femoral necks. ATTESTATION: I, Gildardo Ferraro as teaching physician, have reviewed the images for this case and if necessary edited the report originally created by Greyson Sprague. Narrative 01/24/2023 7:04 PM EDT This is a 72-year-old white female presenting for a screening exam. No prior. Evaluation of the lumbar spine and both hips is obtained and appears technically adequate. The lumbar spine from L1 through L4 discloses a total bone mineral density of 0.977 g/cm2 T-score: -0.6 Z-Score: 1.6 This is in the normal range. The right hip (total) has a total bone mineral density of 0.885 g/cm2 T-score: -0.5 Z-Score: 1.1 This is in the normal range. The right hip (neck) has a total bone mineral density of 0.691 g/cm2 T-score: -1.4 Z-Score: 0.5 This is in the osteopenia range. The left hip (total) has a total bone mineral density of 0.879 g/cm2 T-score: -0.5. Z-Score: 1.1 This is in the normal range. The left hip (neck) has a total bone mineral density of 0.670 g/cm2 T-score: -1.6. Z-Score: 0.3 This is in the osteopenia range. FRAX: 10-Year Fracture Risk Major Osteoporotic Fracture: 11% Hip Fracture: 1.8% Procedure Note Gildardo Ferraro MD - 01/24/2023 This is a 72-year-old white female presenting for a screening exam. Noprior. Evaluation of the lumbar spine and both hips is obtained and appearstechnically adequate. The lumbar spine from L1 through L4 discloses a total bone mineral densityof 0.977 g/cm2 T-score: -0.6 Z-Score: 1.6 This is in the normal range. The right hip (total) has a total bone mineral density of 0.885 g/cm2 T-score: -0.5 Z-Score: 1.1 This is in the normal range. The right hip (neck) has a total bone mineral density of 0.691 g/cm2 T-score: -1.4 Z-Score: 0.5 This is in the osteopenia range. The left hip (total) has a total bone mineral density of 0.879 g/cm2 T-score: -0.5. Z-Score: 1.1 This is in the normal range. The left hip (neck) has a total bone mineral density of 0.670 g/cm2 T-score: -1.6. Z-Score: 0.3 This is in the osteopenia range. FRAX: 10-Year Fracture Risk Major Osteoporotic Fracture: 11% Hip Fracture: 1.8% IMPRESSION: Osteopenia evident in bilateral femoral necks. ATTESTATION: I, Gildardo Ferraro as teaching physician, have reviewed theimages for this case and if necessary edited the report originally createdby Greyson Sprague. us Sky Barrett MD IMG BD BONE DENSITY DEXA F inal Result * ENDOSCOPY, COLON (12/15/2022 7:23 AM EDT) Narrative Transcriptions Karolina Salazar MD - 12/15/2022 7:23 AM EDT [facility] Patient Name: Kacey Collazo Attending MD:: KAROLINA SALAZAR MD, Procedure Date: 12/15/2022 7:23 AM Date of : 1950 Age: 72 Admit Type: Outpatient Gender: Female Room: [place] [address] Referring MD: Sky Barrett MD Exam Type: Colonoscopy Indications: High risk colon cancer surveillance: Personalhistory of colonic polyps, Last colonoscopy: September 2020,Family history of colonic polyps in a first-degreerelative (sister with large polyp) Medications: Propofol per Anesthesia Procedure: Informed consent was obtained from the patientafter discussion of the indications, limitations, alternatives, benefits, and risks of the procedure. Risks specifically discussed include but are not limited to medication reactions, missed lesions, bleeding, perforation, or the need for emergent surgery. Throughout the procedure, the patient's blood pressure, pulse, end-tidal CO2, and oxygensaturations were monitored continuously. The Olympus adult variable colonoscope CF-SD685Y #2 was introduced through the anus and advanced to the terminal ileum, with identification of theappendiceal orifice and IC valve. The colonoscopy was performed without difficulty. The patient tolerated the procedure well. The quality of the bowelpreparation was good. The bowel preparation used was GoLYTELYvia split dose instruction. The terminal ileum, the appendiceal orifice and the rectum werephotographed. Complications: No immediate complications. Estimated blood loss:None. Findings: The perianal and digital rectal examinations were normal. Pertinent negatives include no palpablerectal lesions. The retroflexed view of the distal rectum and anal verge was normal and showed no anal or rectal abnormalities. Many small-mouthed diverticula were found in the sigmoid colon. A very small polyp was found in the splenicflexure. The polyp was sessile. The polyp was removed with a cold snare. Resection and retrieval werecomplete. The exam was otherwise without abnormality. The terminal ileum appeared normal. Retroflexion in the right colon was performed. Impression: - The distal rectum and anal verge are normal on retroflexion view. - Diverticulosis in the sigmoid colon. - One small polyp at the splenic flexure, removedwith a cold snare. Resected and retrieved. - The examination was otherwise normal. - The examined portion of the ileum was normal. Recommendation: - High fiber diet. - Repeat colonoscopy in 5 years for surveillance. KAROLINA SALAZAR MD 12/15/2022 7:54:59 AM This report has been signed electronically. Number of Addenda: 0 Note Initiated On: 12/15/2022 7:23 AM Procedure Code(s): --- Professional --- 88014, Colonoscopy, flexible; with removal of tumor(s), polyp(s), or other lesion(s) by snare technique --- Technical --- 13375, Colonoscopy, flexible; with removal of tumor(s), polyp(s), or other lesion(s) by snare technique Diagnosis Code(s): --- Professional --- Z86.010, Personal history of colonic polyps D12.3, Benign neoplasm of transverse colon (hepatic flexure or splenic flexure) Z83.71, Family history of colonic polyps K57.30, Diverticulosis of large intestine without perforation or abscess without bleeding --- Technical --- Z86.010, Personal history of colonic polyps D12.3, Benign neoplasm of transverse colon (hepatic flexure or splenic flexure) Z83.71, Family history of colonic polyps K57.30, Diverticulosis of large intestine without perforation or abscess without bleeding CPT copyright 2021 [employer]. All rights reserved. The codes documented in this report are preliminary and upon patent legal assistant reviewmay be revised to meet current compliance requirements. Procedure Date: 12/15/2022 7:23:[address] [place] [id number] us Sky Barrett MD GI PROCEDURE ORDERABLES Fi nal Result * BI MAMMOGRAM SCREENING WITH TOMOSYNTHESIS WITH CAD (BILATERAL) (04/21/2022 3:08 PM EST) Anatomical Region Laterality Modality Breast Left, Breast Right, Breast Bilateral Bila teral Mammography 04/27/2022 9:13 AM EST Impressions 04/27/2022 9:17 AM EST BILATERAL BREASTS: Negative, no specific mammographic evidence of malignancy. Normal interval follow-up is recommended in 12 months. BI-RADS: BI-RADS CATEGORY: 1 - Negative. DENSITY: There are scattered fibroglandular densities. Narrative 04/27/2022 9:17 AM EST STUDY: BI MAMMOGRAM SCREENING WITH TOMOSYNTHESIS WITH CAD (BILATERAL) TECHNIQUE: Bilateral full-field digital screening mammography is obtained and read in conjunction with computer-aided detection. Tomosynthesis as well as 2-D C view imaging were obtained. COMPARISON: Comparison made to multiple prior, most recent May 08, 2020, and most remote September 05, 2013. BREAST COMPOSITION: There are scattered areas of fibroglandular density BILATERAL BREASTS: No significant masses, suspicious calcifications or other abnormalities are seen in either breast. Procedure Note Jesse Romero MD - 04/27/2022 STUDY: BI MAMMOGRAM SCREENING WITH TOMOSYNTHESIS WITH CAD (BILATERAL) TECHNIQUE: Bilateral full-field digital screening mammography is obtainedand read in conjunction with computer-aided detection. Tomosynthesis aswell as 2-D C view imaging were obtained. COMPARISON: Comparison made to multiple prior, most recent April, and most remote September 05, 2013. BREAST COMPOSITION: There are scattered areas of fibroglandulardensity BILATERAL BREASTS: No significant masses, suspicious calcifications orother abnormalities are seen in either breast. IMPRESSION: BILATERAL BREASTS: Negative, no specific mammographic evidence ofmalignancy. Normal interval follow-up is recommended in 12 months. BI-RADS: BI-RADS CATEGORY: 1 - Negative. DENSITY: There are scattered fibroglandular densities. us Sky Barrett MD IMG MG EXAMS Final Resu lt * (ABNORMAL) Lipid panel (04/11/2019 7:27 AM EST) HDL 66 mg/dL [facility] Comment: Interpretation <40 mg/dL: Low HDL cholesterol (major risk factor for CHD) Greater than or equal to 60 mg/dL: High HDL cholesterol ( negative risk factor for CHD) HDL - cholesterol is affected by a number of factors, e.g. smoking, excerise, hormones, sex and age. CHOLESTEROL 168 0 - 240 mg/dL [facility] TRIGLYCERIDES 69 30 - 160 mg/dL [facility] LDL 88 50 - 129 mg/dL [facility] Comment: LDL levels in terms of risk for coronary heart disease: <100 mg/dL: Optimal 100-129 mg/dL: Near or above optimal 130-159 mg/dL: Borderline high 160-189 mg/dL: High >190 mg/dL: Very High CARDIAC RISK RATIO 2.5(L) 3.3 - 4.4 C [facility] Blood 04/11/2019 7:27 AM EST 04/11/2019 7:37 AM EST us Lisa Loco DO LAB BLOOD ORDERABLES Final Result [address] [address] from Last 3 Months or Most Recently Relevant to Health Maintenance Insurance MEDICARE PPO BLUE REPLACEMENT MEDICARE PPO BLUE REPLACEMENT MEDICARE PPO BLUE REPLACEMENT MEDICARE PPO BLUE REPLACEMENT MEDICARE PPO BLUE REPLACEMENT MEDICARE PPO BLUE REPLACEMENT MEDICARE PPO BLUE REPLACEMENT MEDICARE PPO BLUE REPLACEMENT MEDICARE PPO BLUE REPLACEMENT Advance Directives For more information, please contact: [phone] (9AM - 5PM [place], Monday-Monday) * Full Code (Presumed) (Latest Code Status on File) Date Activated Date Inactivated Comments 06/15/2018 7:11 AM 06/15/2018 12:54 PM Care Teams Whiskey Proof Reader Relationship Specialty Start Date End Date Sky Barrett MD [address] [place] [address], [address] [place] [address] PCP - General Internal Medicine 07/31/20 Karolina Salazar MD [address] [place] [id number] Gastroenterology 07/19/22 Additional Source Comments The information contained in this document represents components of the legal health record. It is not the complete legal health record.[facility]
--- OUTSIDE RECORDS SUMMARY | 2025-01-24 09:42 | XMS_ITS | Encounter Summary ---
Author Organization [facility] Address [address] [facility] [address] [place] [phone] Phone Care Team Providers Care Podiatry Assistant Name Role Phone kSy Barrett MD Primary Care Provider [phone] Trent Salazar MD Unavailable [phone] Reason for Visit * Reason Onset Date Comments Dizziness 03/30/2022 Encounter Details Date Type Department Care Team (Late st Contact Info) Description 03/30/2022 Nurse Triage [facility] [address] [place] [address] Stacey Ching, RN [address] [place] [phone] [email or web address] Dizziness Social History Tobacco Use Types Packs/Day Years [...] AM EST documented as of this encounter Functional Status * Calculated C-SSRS Risk Score (Lifetime/Recent) Answer Date of Assessment Author No Risk Indicated 03/31/2022 11:36 AM EST Kavitha Carlos, RN * [place] Suicide Severity Rating Scale (Screener/Recent Self-Report) Question Answer Date of Assessment Author 1. Wish to be (Past 1 Month) No 023 11:36 AM Kavitha Ruiz RN 2. Non-Specific Active Suici emilio Thoughts (Past 1 Month) No 03/31/2022 11:36 AM Aleksandar Ruiz RN 6. Suicidal Behavior (Lifetime) No 3 11:36 AM Kavitha Ruiz RN documented as of this encounter Progress Notes * Jhoana Dewey LPN - 03/31/2022 10:18 AM EST Patient is on a treadmill currently. She has been having a problem with what she thinks may be vertigo. Had a problem while driving on highway [place] Monday. Gets very loopy. Sometimes when she walks around she doesn't feel right. This all started after shoveling and she thinks she pinched a nerve in her neck. Patient has experienced upper chest discomfort that radiates to her back. ADVISED PATIENT TO GO TO ED NOW TO BE EVALUATED. EMERGENCY EXPECT SENT. Nurse Triage Encounter Note Reason for Triage Kacey Collazo contacted office for Dizziness Call Disposition Call Ems 911 Now Patient/caregiver understands and will follow disposition: Patient/caregiver understands and will follow care advice: Disposition Comments: Protocols used: Chest Iufj-Zvwto-Af Hwgvvbnwk-Zypgb-Bm Care Advice Given Care Advice Go TO ED NOW Patient will call back with additional questions or if symptoms change or worsen Jhoana Dewey LPN Reason for Disposition and Assessment Reason for Disposition ??? Chest pain lasting longer than 5 minutes and ANY of the following:* Over 44 years old* Over 30 years old and at least one cardiac risk factor (e.g., diabetes mellitus, high blood pressure, high cholesterol, smoker, or strong family history of heart disease)* History of heart disease (i.e., angina, heart attack, heart failure, bypass surgery, takes nitroglycerin)* Pain is crushing, pressure-like, or heavy Answer Assessment - Initial Assessment Questions 1. DESCRIPTION: Describe your dizziness. Intermittent dizziness that lasts seconds. Doesn't feel clear headed 2. LIGHTHEADED: Do you feel lightheaded? (e.g., somewhat faint, woozy, weak upon standing) No 3. VERTIGO: Do you feel like either you or the room is spinning or tilting? (i.e. vertigo) No 4. SEVERITY: How bad is it? Do you feel like you are going to faint? Can you stand and walk? - MILD: Feels slightly dizzy, but walking normally. - MODERATE: Feels unsteady when walking, but not falling; interferes with normal activities (e.g., school, work). - SEVERE: Unable to walk without falling, or requires assistance to walk without falling; feels like passing out now. moderate 5. ONSET: When did the dizziness begin? 1st episode 1.5 weeks ago 6. AGGRAVATING FACTORS: Does anything make it worse? (e.g., standing, change in head position) no 7. HEART RATE: Can you tell me your heart rate? How many beats in 15 seconds? (Note: not all patients can do this) no 8. CAUSE: What do you think is causing the dizziness? unknown 9. RECURRENT SYMPTOM: Have you had dizziness before? If Yes, ask: When was the last time? Whathappened that time? 2 episodes that clearly not normal 10. OTHER SYMPTOMS: Do you have any other symptoms? (e.g., fever, chest pain, vomiting, diarrhea,bleeding) Head doesn't feel clear, feels foggy 11. : Is there any chance you are ? When was your last menstrual period? no Answer Assessment - Initial Assessment Questions 1. LOCATION: Where does it hurt? Upper chest 2. RADIATION: Does the pain go anywhere else? (e.g., into neck, jaw, arms, back) Upper back 3. ONSET: When did the chest pain begin? (Minutes, hours or days) Intermittent for 1.5 weeks 4. PATTERN Does the pain come and go, or has it been constant since it started? Does it get worse with exertion? intermittent 5. DURATION: How long does it last (e.g., seconds, minutes, hours) minutes 6. SEVERITY: How bad is the pain? (e.g., Scale 1-10; mild, moderate, or severe) - MILD (1-3): doesn't interfere with normal activities - MODERATE (4-7): interferes with normal activities or awakens from sleep - SEVERE (8-10): excruciating pain, unable to do any normal activities 7. CARDIAC RISK FACTORS: Do you have any history of heart problems or risk factors for heart disease? (e.g., angina, prior heart attack; diabetes, high blood pressure, high cholesterol, smoker, or strong family history of heart disease) 8. PULMONARY RISK FACTORS: Do you have any history of lung disease? (e.g., blood clots in lung, asthma, emphysema, control pills) 9. CAUSE: What do you think is causing the chest pain? Unknown/ ?hiatal hernia 10. OTHER SYMPTOMS: Do you have any other symptoms? (e.g., dizziness, nausea, vomiting, sweating,fever, difficulty breathing, cough) Dizziness, head feels foggy 11. : Is there any chance you are ? When was your last menstrual period? no Protocols used: CHEST RBSG-MAMAW-HR, [id number] * Stacey Ching RN - 03/30/2022 1:18 PM EST Patient leaves stating she is experiencing what she believes to be vertigo. Is wondering if there is something she can take for this? Requests call back. documented in this encounter Plan of Treatment Upcoming Encounters Date Type Department Care Team (Late st Contact Info) Description 01/07/2025 Procedure Pass [address] [address] 01/28/2025 8:30 AM EST Office Visit [facility] Orthopedics & Sports Medicine [address] [place] [phone] Lorena Denis MD [address] [place] [address] Orthopedics & Sports Medicine, [place] [address] 02/12/2025 6:10 PM EST Appointment [address] [address] Haley Castellanos PA-C [address] [place] [address] [facility] [place] [address] 03/13/2025 10:15 AM EST Office Visit [facility] Orthopedics & Sports Medicine [address] [place] [phone] Lorena Denis MD [address] [place] [address] Orthopedics & Sports [facility], [place], [place] [id number] documented as of this encounter Visit Diagnoses Not on filedocumented in this encounter Care Teams Podiatry Assistant Relationship Specialty Start Date End Date Sky Barrett MD [address] [place] [address] [phone] [place] [address] PCP - General Internal Medicine 07/31/20 Trent Salazar MD [address] [place] [id number] Gastroenterology 07/19/22 documented as of this encounter Additional Source Comments The information contained in this document represents components of the legal health record. It is not the complete legal health record.[facility]
== END 2025-01-24 09:01 | disposition home or self-care (01) ==
LOC: HO.MRI 09:00
PROVIDERS: PCP Internal Medicine; Visit Provider Physician Assistant Medical
DX: R22.31 Localized swelling, mass and lump, right upper limb (principal)
CPT/HCPCS: 73220; A9585

== ENCOUNTER → 2025-01-24 09:17 | Outpatient (BNV) | payer MEDICARE, SELFPAY | PROVIDERS: PCP Internal Medicine; Visit Provider Radiology Diagnostic Radiology | DX: M65.842 Other synovitis and tenosynovitis, left hand (principal); M18.12 Unilateral primary osteoarthritis of first carpometacarpal joint, left hand | CPT/HCPCS: 73220 ==